=== PATIENT | male | born 1985 | race American Indian/Alaskan Native ===

== ENCOUNTER 2018-11-07 03:10 | Emergency (ER) | payer MEDICAID ==
[2018-11-07 03:48] VITALS: BP 133/78; PULSE 102; RESP 20; TEMP 98.1; O2SAT 99
--- NOTE | 2018-11-07 04:43 | C.PDOC ---
History Of Present Illness 33 year old male is brought to the ED by EMS and Police for evaluation of public intoxication. Patient was picked up by the Police from the street and brought to the ED. Patient reports he drank and beer and smoked a joint today. Patient denies SI/HI, hallucinations, other medical complaints at this time. Time Seen by Provider: 11/07/18 04:10 Chief Complaint (Nursing): Medical Clearance History Per: Patient History/Exam Limitations: no limitations Onset/Duration Of Symptoms: Hrs Current Symptoms Are (Timing): Still Present Recent travel outside of the [place]: No Additional History Per: Patient, EMS Past Medical History Reviewed: Historical Data, Nursing Documentation, Vital Signs Vital Signs: Last Vital Signs Temp 98.1 F 11/07/18 03:31 Pulse 102 H 11/07/18 03:31 Resp 20 11/07/18 03:31 BP 133/78 11/07/18 03:31 Pulse Ox 99 11/07/18 03:31 - Medical History PMH: No Chronic Diseases Surgical History: No Surg Hx Family History: States: Unknown Family Hx - Social History Hx Alcohol Use: Yes Hx Substance Use: Yes Review Of Systems Constitutional: Negative for: Fever, Chills Cardiovascular: Negative for: Chest Pain, Palpitations Respiratory: Negative for: Shortness of Breath Gastrointestinal: Negative for: Nausea, Vomiting, Abdominal Pain Skin: Negative for: Rash Neurological: Negative for: Weakness, Numbness Psych: Negative for: Depression, Suicidal ideation Physical Exam - Physical Exam Appears: Non-toxic, No Acute Distress Skin: Normal Color, Warm, Dry, Other (scab to left cheef near side of nouth, no sutures seen) Head: Atraumatic, Normacephalic Eye(s): bilateral: Normal Inspection Neck: Normal ROM, Supple Chest: Symmetrical Cardiovascular: Rhythm Regular Respiratory: Normal Breath Sounds, No Rales, No Rhonchi, No Wheezing Gastrointestinal/Abdominal: Soft, No Tenderness, No Guarding, No Rebound Extremity: Normal ROM, No Tenderness, No Swelling Neurological/Psych: Oriented x3, Normal Speech, Normal Cognition Gait: Steady ED Course And Treatment O2 Sat by Pulse Oximetry: 99 (ON RA) Pulse Ox Interpretation: Normal Progress Note: On reassessment, patient is resting comfortably, and is in no acute distress. Patient was instructed to follow up with physician/clinic in 1-2 days for further evaluation. Disposition Counseled Patient/Family Regarding: Diagnosis, Need For Followup - Disposition Disposition: HOME/ ROUTINE Disposition Time: 04:40 Condition: STABLE Additional Instructions: Please follow up in clinic Take medications as directed Return to ER if worse Forms: [facility] (Polish), General Discharge Instructions - Clinical Impression Clinical Impression: Medical assessment - PA / [employer]TE[employer] / Resident Statement MD/DO has reviewed & agrees with the documentation as recorded. - Scribe Statement The provider has reviewed the documentation as recorded by the Scribe Raheem Newman All medical record entries made by the Yawibclaribel were at my direction and personally dictated by me. I have reviewed the chart and agree that the record accurately reflects my personal performance of the history, physical exam, medical decision making, and the department course for this patient. I have also personally directed, reviewed, and agree with the discharge instructions and disposition.
== END 2018-11-07 04:59 | disposition home or self-care (01) ==
LOC: C.ER 03:10
DX: Z00.00 Encounter for general adult medical examination without abnormal findings (principal)